=== PATIENT | male | born 1985 | race Caucasian/White ===

== ENCOUNTER 2017-05-24 11:21 | Emergency (ER) | payer SELFPAY ==
[~2017-05-24] VITALS: Ht 157.5 cm; Wt 70.0 kg
[2017-05-24 11:25] VITALS: Ht 157.5 cm; Wt 70.0 kg
[2017-05-24] MEDS ORDERED: SOD CHLORIDE 0.9% 1,000 ML IV STA (12:15)
[2017-05-24] MEDS ORDERED: ONDANSETRON 4 MG INJ IV STA (12:15)
[2017-05-24] MEDS ORDERED: METOCLOPRAMIDE 10 MG INJ IV STA (12:15)
[2017-05-24] MEDS ORDERED: ONDA4TAB14 PO (12:16)
--- NOTE | 2017-05-24 12:22 | ERD ---
ER Documentation Chief Complaint Chief Complaint ETOH YESTERDAY, VOMITED X 2 TODAY, FEELS DEHYDRATED, WANTS IV HPI 32-year-old male presenting to the emergency department complaining of nausea and vomiting for 1 day. Patient states that he feels dehydrated. He states that he has had too much alcohol yesterday, he denies drinking every single day. ROS All systems reviewed and are negative except as per history of present illness. Medications Home Meds Active Scripts Ondansetron (Ondansetron Odt) 4 Mg Tab.rapdis, 4 MG PO Q6H Y for NAUSEA AND/OR VOMITING, #10 TAB Prov:GOMEZ GONZALEZ PA-C 05/24/17 Allergies Allergies: Coded Allergies: No Known Allergy (Unverified , 05/24/17) PMhx/Soc Hx Alcohol Use: Yes Hx Substance Use: Yes Hx Tobacco Use: Yes Physical Exam Vitals Vital Signs Date Time Temp Pulse Resp B/P Pulse Ox O2 Delivery O2 Flow Rate FiO2 05/24/17 11:25 98.1 99 18 122/74 99 Physical Exam Const: [] Head: Atraumatic Eyes: Normal Conjunctiva ENT: Normal External Ears, Nose and Mouth. Neck: Full range of motion..~ No meningismus. Resp: Clear to auscultation bilaterally Cardio: Regular rate and rhythm, no murmurs Abd: Soft, non tender, non distended. Normal bowel sounds Skin: No petechiae or rashes Back: No midline or flank tenderness Ext: No cyanosis, or edema Neur: Awake and alert Psych: Normal Mood and Affect Result Diagram: 05/24/17 1251 05/24/17 1251 Results 24 hrs Laboratory Tests Test 05/24/17 12:51 White Blood Count 23.210^3/ul Red Blood Count 5.0010^6/ul Hemoglobin 15.7g/dl Hematocrit 47.0% Mean Corpuscular Volume 94.0fl Mean Corpuscular Hemoglobin 31.4pg Mean Corpuscular Hemoglobin Concent 33.4g/dl Red Cell Distribution Width 12.7% Platelet Count 06922^3/UL Mean Platelet Volume 10.0fl Neutrophils % 89.0% Lymphocytes % 5.6% Monocytes % 4.4% Eosinophils % 0.0% Basophils % 0.2% Nucleated Red Blood Cells % 0.0/100WBC Neutrophils # 20.710^3/ul Lymphocytes # 1.310^3/ul Monocytes # 1.010^3/ul Eosinophils # 0.010^3/ul Basophils # 0.010^3/ul Nucleated Red Blood Cells # 0.010^3/ul Sodium Level 148mmol/L Potassium Level 4.0mmol/L Chloride Level 107mmol/L Carbon Dioxide Level 22mmol/L Anion Gap 23 Blood Urea Nitrogen 14mg/dl Creatinine 0.90mg/dl Glucose Level 69mg/dl Calcium Level 9.6mg/dl Total Bilirubin 1.8mg/dl Direct Bilirubin 0.00mg/dl Indirect Bilirubin 1.8mg/dl Aspartate Amino Transf (AST/SGOT) 25IU/L Alanine Aminotransferase (ALT/SGPT) 32IU/L Alkaline Phosphatase 68IU/L Total Protein 7.4g/dl Albumin 4.3g/dl Globulin 3.10g/dl Albumin/Globulin Ratio 1.38 Lipase 58U/L Current Medications Medications (Trade) Dose Ordered Sig/Jane Route PRN Reason Start Time Stop Time Status Last Admin Dose Admin Sodium Chloride (NS) 1,000 ml @ 1,000 mls/hr Q1H STAT IV 05/24/17 12:15 05/24/17 13:14 DC 05/24/17 12:40 Ondansetron HCl (Zofran Inj) 8 mg ONCE STAT IV 05/24/17 12:15 05/24/17 12:16 DC 05/24/17 12:40 Metoclopramide HCl (Reglan) 10 mg ONCE STAT IV 05/24/17 12:15 05/24/17 12:16 DC 05/24/17 12:40 Procedures/MDM Is a 32-year-old male presenting to the emergency department with nausea and vomiting due to alcohol abuse last night., Patient has stable vital signs and is well-appearing enough to go home. In the ED, IV access established. Patient was given 1 L of normal saline fluids. He was given Zofran and Pepcid, have reassessed him and he feels better. Patient's mother asked to do blood work, labs were drawn. Patient had leukocytosis of 23, when I went to go discuss the findings with patient, he eloped Departure Diagnosis: Primary Impression: Alcohol abuse Additional Impression: Vomiting Condition: Stable Patient Instructions: Diet, Vomiting Or Diarrhea [6Yr-Adult], Alcohol Intoxication GOMEZ GONZALEZ PA-C May 24, 2017 12:22
[2017-05-24 13:03] LABS: ABNORMAL IP MESSAGE 1; BASOPHILS % 0.2 % (0.0-2.0); HEMOGLOBIN 15.7 g/dl (14.0-18.0); LYMPHOCYTES # 1.3 10^3/ul (0.8-2.9); LYMPHOCYTES % 5.6 % (15.0-51.0); MEAN CORPUSCULAR HEMOGLOBIN 31.4 pg (29.0-33.0); MEAN CORPUSCULAR HGB CONC 33.4 g/dl (32.0-37.0); MONOCYTES % 4.4 % (0.0-11.0); NEUTROPHIL # 20.7 10^3/ul (1.6-7.5); PLATELET COUNT 305 10^3/UL (140-415); POSITIVE DIFF @See below; RED CELL DISTRIBUTION WIDTH 12.7 % (11.5-14.5); WHITE BLOOD COUNT 23.2 10^3/ul (4.8-10.8)
[2017-05-24 13:20] LABS: ALBUMIN 4.3 g/dl (3.3-4.9); ALBUMIN/GLOBULIN RATIO 1.38; BILIRUBIN,INDIRECT 1.8 mg/dl (0-1.1); BILIRUBIN,TOTAL 1.8 mg/dl (0.2-1.3); CALCIUM 9.6 mg/dl (8.4-10.2); CREATININE 0.9 mg/dl (0.61-1.24); TOTAL PROTEIN 7.4 g/dl (6.1-8.1)
== END 2017-05-24 13:10 | disposition left against medical advice (07) ==
LOC: FTE 11:21
DX: F10.10 Alcohol abuse, uncomplicated (principal)
CPT/HCPCS: 80053; 83690; 85025; 96374; 96375; 99284; J2405; J2765; J7030

== ENCOUNTER 2017-11-10 14:01 | Emergency (ER) | END 2017-11-10 14:17 | disposition home or self-care (01) ==

== ENCOUNTER 2017-11-22 19:23 | Emergency (ER) | END 2017-11-22 23:54 | disposition home or self-care (01) ==

== ENCOUNTER 2018-01-01 20:19 | Emergency (ER) | END 2018-01-02 02:42 | disposition home or self-care (01) ==

== ENCOUNTER 2018-01-12 14:06 | Emergency (ER) | END 2018-01-12 16:44 | disposition home or self-care (01) ==